=== PATIENT | male | born 1995 | race Caucasian/White ===

== ENCOUNTER 2020-10-04 18:38 | Emergency (ER) | payer SELFPAY ==
[~2020-10-04] VITALS: Ht 175.3 cm; Wt 101.9 kg
[2020-10-04 18:45] VITALS: BP 130/70
--- NOTE | 2020-10-04 18:58 | NUR ---
Provider at bedside.
[2020-10-04] MEDS ORDERED: IBUPROFEN 600 MG TABLET ONE (19:07)
--- NOTE | 2020-10-04 19:12 | NUR ---
Pt to US
[2020-10-04] MEDS ORDERED: IBUPROFEN 200 MG TABLET PO ONE (19:30)
[2020-10-04 19:34] LABS: MICROSCOPIC AUTO
--- NOTE | 2020-10-04 19:49 | NUR ---
Report to FELY Garcia.
[2020-10-04] MEDS ORDERED: CEFTRIAXONE 1,000 MG ONE (20:24)
[2020-10-04] MEDS ORDERED: DOXYCYCLINE 100MG TABLET ONE (20:25)
[2020-10-04] MEDS ORDERED: DOXYCYCLINE 100MG TABLET PO ONE (20:30)
[2020-10-04] MEDS ORDERED: CEFTRIAXONE 1,000 MG IM ONE (20:30)
--- NOTE | 2020-10-04 20:40 | NUR ---
TASK RN: PT MEDICATED PER NOV. PT AWARE OF NEED TO REMAIN IN ED FOR 15 POST INJECTION TO ENSURE PT DOES NOT HAVE REACTION. PT VERBALIZES UNDERSTANDING.
== END 2020-10-04 20:56 | disposition home or self-care (01) ==
LOC: ED 20:34
DX: N45.1 Epididymitis (principal); R30.0 Dysuria; N50.812 Left testicular pain
CPT/HCPCS: 76870; 81001; 87086; 87491; 87591; 96372; 99284; J0696

== ENCOUNTER 2020-10-07 04:04 | Emergency (ER) | payer SELFPAY ==
[~2020-10-07] VITALS: Ht 175.3 cm; Wt 102.3 kg
[2020-10-07] MEDS ORDERED: CEFTRIAXONE 1,000 MG IM ONE (05:00)
[2020-10-07 05:12] LABS: MICROSCOPIC AUTO
[2020-10-07] MEDS ORDERED: CEFTRIAXONE 1,000 MG ONE (06:50)
--- NOTE | 2020-10-07 06:59 | NUR ---
Assumed care from off going RN Norris pt stable for discharge to home, education materials provided and reviewed, verbalizes understanding.
[2020-10-07 07:00] VITALS: BP 108/64
== END 2020-10-07 07:07 | disposition home or self-care (01) ==
LOC: ED 07:04
DX: N45.1 Epididymitis (principal)
CPT/HCPCS: 76870; 81001; 87086; 96372; 99284; J0696

== ENCOUNTER 2021-01-29 18:43 | Emergency (ER) | payer MEDICAID ==
[~2021-01-29] VITALS: Ht 175.3 cm; Wt 107.8 kg
[2021-01-29 19:00] VITALS: BP 125/76
[2021-01-29] MEDS ORDERED: LIDOCAINE-MPF 1%, 5ML ONE (19:23)
[2021-01-29] MEDS ORDERED: LIDOCAINE 1%, 10ML INFIL ONE (19:30)
--- NOTE | 2021-01-29 19:57 | NUR ---
pt a&ox4, no acute distress. pt with a large abcess to the right underarm. I&D completed by pa, and pt tolerated well. f/u and d/c instructions given to pt and he v/u. pt ambulatory and d/c'd without incident.
== END 2021-01-29 20:02 | disposition home or self-care (01) ==
LOC: ED 19:01
DX: L02.411 Cutaneous abscess of right axilla (principal)
CPT/HCPCS: 10060; 87491; 87591; 99283; J3490